=== PATIENT | female | born 1985 | race Caucasian/White ===

== ENCOUNTER 2020-04-07 20:57 | Emergency (ER) | payer BC, OTHER ==
[2020-04-07] MEDS ORDERED: IBUPROFEN 800 MG TABLET PO ONE (21:45)
[2020-04-07] MEDS ORDERED: ONDANSETRON 4 MG TAB.RAPDIS PO ONE (21:45)
--- NOTE | 2020-04-07 21:47 | ER Document Report ---
ED Medical Screen (RME) - General Chief Complaint: Fall Stated Complaint: FALL FACE PAIN/NAUSEA Time Seen by Provider: 04/07/20 21:38 Primary Care Provider: MIGUEL GUPTA DO [Primary Care Provider] - Follow up as needed Mode of Arrival: Ambulatory Information source: Patient Notes: 35-year-old female presents to ED for complaint of left side of her face and jaw and headache as well as pain with deep breathing in her chest or yawning. She states she fell when she slipped in the shower about 745 tonight. She states she hit her face and has severe jaw pain and facial pain she also has a headache. She states she was nauseated earlier but is no longer nauseated she was dizzy a little earlier. She states she does have a history of anxiety depression and is taking her anxiety depression medicine and Unisom tonight. She was planning to stay home but decided that the pain was not getting any better so she came to the emergency room. She is a former smoker, drinks occasionally and does not use any illicit drugs. She states her pain is a level 4 out of 5 achy and throbbing. I have treated the patient with ibuprofen and Zofran and will get a CT of the face and a chest x-ray for her pain. She will be seen by another provider. I have greeted and performed a rapid initial assessment of this patient. A comprehensive ED assessment and evaluation of the patient, analysis of test results and completion of medical decision making process will be conducted by an additional ED providers. TRAVEL OUTSIDE OF THE [place] IN LAST 30 DAYS: No - N - Related Data Allergies/Adverse Reactions: No Known Allergies Allergy (Verified 04/07/20 21:42) Past Medical History - Social History Frequency of alcohol use: Occasional Drug Abuse: None GI Medical History: Reports: Hx Gastroesophageal Reflux Disease Physical Exam - Vital signs Vitals: Temp Pulse Resp BP Pulse Ox 97.8 F 85 16 142/92 H 100 04/07/20 21:04 04/07/20 21:04/07/20 21:04 04/07/20 21:04 04/07/20 21:04 Course - Vital Signs Vital signs: Temp Pulse Resp BP Pulse Ox 97.8 F 85 16 142/92 H 100 04/07/20 21:04 04/07/20 21:04 04/07/20 21:04 04/07/20 21:04 04/07/20 21:04 Doctor's Discharge - Discharge Referrals: MIGUEL GUPTA, [Primary Care Provider] - Follow up as needed
--- NOTE | 2020-04-07 22:48 | RADIOLOGY REPORT (SQ) ---
EXAM DESCRIPTION: XR CHEST 2 VIEWS COMPLETED DATE/TME: 04/07/2020 21:44 CLINICAL HISTORY: 35 years, Female, fall in shower COMPARISON: None. NUMBER OF VIEWS: TECHNIQUE: LIMITATIONS: None. FINDINGS: No evidence of pulmonary infiltrate or pleural effusion. The heart and mediastinum are unremarkable. Pulmonary vascularity appears normal. No gross evidence of fracture. IMPRESSION: No traumatic abnormality. copyright 2010 [employer]- All Rights Reserved
--- NOTE | 2020-04-07 22:59 | RADIOLOGY REPORT (SQ) ---
CLINICAL HISTORY: fall in shower left face and jaw pain COMPARISON: None. TECHNIQUE: CT MAXILLOFACIAL WITHOUT IV CONTRAST on 04/07/2020 9:44 PM CDT This exam was performed according to our departmental dose-optimization program, which includes automated exposure control, adjustment of the mA and/or kV according to patient size and/or use of iterative reconstruction technique. FINDINGS: There is no acute fracture. The paranasal sinuses are clear. Orbits and globes are unremarkable. Mastoid air cells are clear. Temporomandibular joints are intact. There are no significant soft tissue abnormalities. IMPRESSION: No post-traumatic findings.
--- NOTE | 2020-04-07 23:24 | ER Document Report ---
Entered by DIANDRA OLMSTEAD SCRIBE 04/07/20 1805 Acting as scribe for:GERALD SNIDER DO ED Fall - General Chief Complaint: Fall Stated Complaint: FALL FACE PAIN/NAUSEA Time Seen by Provider: 04/07/20 21:38 Primary Care Provider: MIGUEL GUPTA DO [NO LOCAL MD] - Follow up as needed Mode of Arrival: Ambulatory Information source: Patient Notes: This 35 year old female patient presents to the ED today for evaluation after she slipped and fell getting in the shower around 1930 this evening, injuring the left side of her jaw and left lower extremity. Pain is 3/5 in severity at this time. She also reports some chest discomfort with deep breaths. Denies any loose teeth. TRAVEL OUTSIDE OF THE [place] IN LAST 30 DAYS: No - N - Related data Allergies/Adverse Reactions: No Known Allergies Allergy (Verified 04/07/20 21:42) Past Medical History - General Information source: Patient - Social History Smoking Status: Former Smoker Cigarette use (# per day): No Chew tobacco use (# tins/day): No Smoking Education Provided: No Frequency of alcohol use: Occasional Drug Abuse: None Lives with: Spouse/Significant other Family History: Reviewed & Not Pertinent Patient has suicidal ideation: No Patient has homicidal ideation: No GI Medical History: Reports: Hx Gastroesophageal Reflux Disease Review of Systems - Review of Systems Constitutional: No symptoms reported EENT: See HPI Cardiovascular: See HPI Respiratory: No symptoms reported Gastrointestinal: No symptoms reported Genitourinary: No symptoms reported Female Genitourinary: No symptoms reported Musculoskeletal: See HPI Skin: No symptoms reported Hematologic/Lymphatic: No symptoms reported Neurological/Psychological: No symptoms reported -: Yes All other systems reviewed and negative Physical Exam - Vital signs Vitals: Temp Pulse Resp BP Pulse Ox 97.8 F 85 16 142/92 H 100 04/07/20 21:04 04/07/20 21:04 04/07/20 21:04 04/07/20 21:04 04/07/20 21:04 - General General appearance: Alert In distress: None - HEENT Head: Normocephalic Eyes: Normal Extraocular movements intact: Yes Pupils: PERRL Mouth/Lips: Other - 2 cm area of soft tissue swelling noted to left upper lip. No active bleeding - Respiratory Respiratory status: No respiratory distress Chest status: Nontender Breath sounds: Normal Chest palpation: Normal - Cardiovascular Rhythm: Regular Heart sounds: Normal auscultation Murmur: No Friction rub: No Gallop: None auscultated - Abdominal Inspection: Obese Distension: No distension Bowel sounds: Normal Tenderness: Nontender - Abdomen soft Organomegaly: No organomegaly - Back Back: Normal, Nontender - Extremities General upper extremity: Normal inspection Thigh: Tender - Left thigh is tender to palpation - Neurological Neuro grossly intact: Yes Orientation: AAOx4 He Coma Scale Eye Opening: Spontaneous [place] Coma Scale Verbal: Oriented He Coma Scale Motor: Obeys Commands [place] Coma Scale Total: 15 - Psychological Associated symptoms: Normal affect, Normal mood - Skin Skin Temperature: Warm Skin Moisture: Dry Skin Color: Normal Course - Re-evaluation Re-evalutation: 04/07/20 23:37 MDM 35 year old slipped and fell in the shower. Injured left jaw and left leg. Chest just a bit sore. Work up here shows bruising but no intra oral injury and no serious injury. Discussed ice and medicine and she expressed understanding. - Vital Signs Vital signs: Temp Pulse Resp BP Pulse Ox 98.4 F 79 20 138/80 H 100 04/07/20 23:59 04/07/20 23:59 04/07/20 23:59 04/07/20 23:59 04/07/20 23:59 - Diagnostic Test Radiology reviewed: Image reviewed, Reports reviewed Discharge - Discharge Clinical Impression: Contusion of face, Contusion of left leg Condition: Stable Disposition: HOME, SELF-CARE Instructions: Contusion ([facility]) Additional Instructions: Use ice as described. Take extra strength tylenol as needed for pain. If the pain exceeds this you may take a norco but do not drive or operate machinery with the norco. Forms: Elevated Blood Pressure Referrals: MIGUEL GUPTA DO [NO LOCAL MD] - Follow up as needed I personally performed the services described in the documentation, reviewed and edited the documentation which was dictated to the scribe in my presence, and it accurately records my words and actions.
[2020-04-07] MEDS ORDERED: HYDROCODONE/ACETAMINOPHEN 5-325 MG (6 TAB/ER DISP) PO PRN (23:43)
[2020-04-07 23:58] VITALS: BP 138/80
== END 2020-04-07 23:58 | disposition home or self-care (01) ==
LOC: ER 20:57
DX: S00.83XA Contusion of other part of head, initial encounter (principal); S80.12XA Contusion of left lower leg, initial encounter; R51 Headache; R09.89 Other specified symptoms and signs involving the circulatory and respiratory systems; W18.2XXA Fall in (into) shower or empty bathtub, initial encounter; Y93.89 Activity, other specified; Z87.891 Personal history of nicotine dependence
CPT/HCPCS: 99284; 71046; 70486; A9270 ×3; S0119